=== PATIENT | male | born 1955 | race Caucasian/White ===

== ENCOUNTER 2020-04-08 11:36 | Emergency (ER) | payer BC, OTHER ==
[~2020-04-08] VITALS: Ht 167 cm; Wt 83.9 kg
[2020-04-08] MEDS ORDERED: ASPIRIN 81 MG CHEW (CHILDREN'S ASA) ONE (11:44)
--- NOTE | 2020-04-08 11:55 | ED Cardiac General ---
History of Present Illness General Chief Complaint: Cardiac/General Problems Stated Complaint: HEART ISSUES Source: patient Exam Limitations: no limitations History of Present Illness Date Seen by Provider: Apr 08, 2020 Time Seen by Provider: 11:37 Initial Comments Patient presents ER by private conveyance from [facility] urgent care where he was seen because last night he started having some palpitations and feeling of uneasiness. No chest pain. He says he felt the sensation in his chest go away all he was in the lobby area EKG was obtained showing atrial fibrillation with rapid ventricular response 134. He had a good blood pressure 106/70 and declined an ambulance but came over by POV. Patient has no known history of coronary disease nor sick nor significant Family medical history. He denies chest pain nausea paresthesias. He quit smoking over 20 years ago. He does not have a known history of hyperlipidemia hypertension or diabetes. 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 He says is always been told he has great health. No personal history of atrial fibrillation prior to this. He was tested for COVID 19 2 weeks ago but has not heard the results. He does not have any fever, chills shortness of breath and has not had any symptoms for greater than 10 days. Allergies and Home Medications Allergies Coded Allergies: No Known Drug Allergies (Unverified , 04/08/20) Home Medications Apixaban 5 Mg Tablet, 5 MG PO BID Prescribed by: TRENTON WONG on 04/08/20 1246 Metoprolol Succinate 25 Mg Tab.er.24h, 25 MG PO DAILY Prescribed by: TRENTON WONG on 04/08/20 1246 Patient Home Medication List Home Medication List Reviewed: Yes Review of Systems Review of Systems Constitutional: No chills, No fever EENTM: No Blurred Vision, No Double Vision Respiratory: Denies Cough, Denies Shortness of Air Cardiovascular: See HPI; Denies Chest Pain, Denies Edema; Irregular Heart Rate; Denies Lightheadedness; Palpitations; Denies Syncope Gastrointestinal: Denies Constipated, Denies Diarrhea, Denies Nausea Genitourinary: Denies Burning, Denies Discharge Musculoskeletal: No back pain, No joint pain Skin: No pruritus, No rash Psychiatric/Neurological: Denies Depressed, Denies Headache All Other Systems Reviewed Negative Unless Noted: Yes Past Bzzfbpj-Fpinde-Iulpba Hx Patient Social History Alcohol Use: Denies Use Recreational Drug Use: No Smoking Status: Former Smoker Type Used: Cigarettes Former Smoker, Quit: Mar 16, 1999 Physical Exam Vital Signs Vital Signs - First Documented 04/08/20 11:36 Temp 35.9 Pulse 74 Resp 20 B/P (MAP) 126/94 (105) Pulse Ox 98 Capillary Refill : Height, Weight, BMI Height: '" Weight: lbs. oz. kg; BMI Method: General Appearance: No Apparent Distress, WD/WN HEENT: PERRL/EOMI, Pharynx Normal, Moist Mucous Membranes Neck: Full Range of Motion, Normal Inspection Respiratory: Lungs Clear, Normal Breath Sounds, No Accessory Muscle Use, No Respiratory Distress Cardiovascular: Regular Rate, Rhythm, No Edema, No Murmur, Normal Peripheral Pulses Gastrointestinal: Normal Bowel Sounds, No Organomegaly, Non Tender, Soft Extremity: Normal Capillary Refill, Normal Inspection, No Calf Tenderness, No P edal Edema Neurologic/Psychiatric: Alert, Oriented x3, No Motor/Sensory Deficits, Normal Mood/Affect, health sciences program coordinator II-XII Norm as Tested Skin: Normal Color Progress/Results/Core Measures Results/Orders Lab Results Laboratory Tests Test 04/08/20 11:35 Range/Units White Blood Count 6.1 4.3-11.0 10^3/uL Red Blood Count 5.61 4.35-5.85 10^6/uL Hemoglobin 16.4 13.3-17.7 G/DL Hematocrit 48 40-54 % Mean Corpuscular Volume 86 80-99 FL Mean Corpuscular Hemoglobin 29 25-34 PG Mean Corpuscular Hemoglobin Concent 34 32-36 G/DL Red Cell Distribution Width 13.0 10.0-14.5 % Platelet Count 247 130-400 10^3/uL Mean Platelet Volume 9.9 7.4-10.4 FL Neutrophils (%) (Auto) 60 42-75 % Lymphocytes (%) (Auto) 28 12-44 % Monocytes (%) (Auto) 10 0-12 % Eosinophils (%) (Auto) 2 0-10 % Basophils (%) (Auto) 0 0-10 % Neutrophils # (Auto) 3.7 1.8-7.8 X 10^3 Lymphocytes # (Auto) 1.7 1.0-4.0 X 10^3 Monocytes # (Auto) 0.6 0.0-1.0 X 10^3 Eosinophils # (Auto) 0.1 0.0-0.3 10^3/uL Basophils # (Auto) 0.0 0.0-0.1 10^3/uL Prothrombin Time 12.9 12.2-14.7 SEC INR Comment 0.9 0.8-1.4 Activated Partial Thromboplast Time 27 24-35 SEC Sodium Level 141 135-145 MMOL/L Potassium Level 4.2 3.6-5.0 MMOL/L Chloride Level 106 98-107 MMOL/L Carbon Dioxide Level 26 21-32 MMOL/L Anion Gap 9 5-14 MMOL/L Blood Urea Nitrogen 16 7-18 MG/DL Creatinine 1.08 0.60-1.30 MG/DL Estimat Glomerular Filtration Rate > 60 BUN/Creatinine Ratio 15 Glucose Level 107 H 70-105 MG/DL Calcium Level 9.5 8.5-10.1 MG/DL Corrected Calcium 9.2 8.5-10.1 MG/DL Magnesium Level 2.2 1.6-2.4 MG/DL Total Bilirubin 0.5 0.1-1.0 MG/DL Aspartate Amino Transf (AST/SGOT) 17 5-34 U/L Alanine Aminotransferase (ALT/SGPT) 23 0-55 U/L Alkaline Phosphatase 71 40-136 U/L Myoglobin 52.2 10.0-92.0 NG/ML Troponin I < 0.028 <0.028 NG/ML Total Protein 7.5 6.4-8.2 GM/DL Albumin 4.4 3.2-4.5 GM/DL My Orders Orders - TRENTON WONG Aspirin Chewable Tablet (Baby Aspirin Ch (04/08/20 11:44) Cbc With Automated Diff (04/08/20 11:48) Magnesium (04/08/20 11:48) Chest 1 View, Ap/Pa Only (04/08/20 11:48) Ekg Tracing (04/08/20 11:48) Comprehensive Metabolic Panel (04/08/20 11:48) Myoglobin Serum (04/08/20 11:48) Protime With Inr (04/08/20 11:48) Partial Thromboplastin Time (04/08/20 11:48) O2 (04/08/20 11:48) Monitor-Rhythm Ecg Trace Only (04/08/20 11:48) Lipid Panel (04/09/20 06:00) Ed Iv/Invasive Line Start (04/08/20 11:48) Aspirin Chewable Tablet (Baby Aspirin Ch (04/08/20 12:00) Troponin I (04/08/20 11:35) Medications Given in ED Current Medications Medications Dose Ordered Sig/Eagle Route Start Time Stop Time Status Last Admin Dose Admin Aspirin 324 mg ONCE ONCE PO 04/08/20 12:00 04/08/20 12:01 DC 04/08/20 12:01 324 MG Vital Signs/I&O 04/08/20 11:36 Temp 35.9 Pulse 74 Resp 20 B/P (MAP) 126/94 (105) Pulse Ox 98 Progress Progress Note #1: Time: 11:56 Progress Note Neurologically intact without any chest pain. We will give him some aspirin and check some labs. Since his symptoms have been going on since last night negative troponin would be sufficient. He's had no anginal symptoms. He seems to have spontaneously converted since his EKG was obtained at [facility] urgent care. Plan to have him follow-up outpatient with cardiology, Dr. Cabrera. [id number] score of 0 points. Stroke risk of 0.2% per year and 0.3% risk for stroke/TIA/systemic embolism. This is low risk and may not require anticoagulation. Atria score 0 points putting him at low risk less than 1% per hemorrhage. Reasonable to start anticoagulation. Progress Note #2: Time: 12:52 Progress Note Patient said he was tested 11 days ago and has not had any symptoms since last weekend, for 5 days ago. He had a runny nose and mild sore throat without fevers chills cough or shortness of breath. [facility] do not have a test results from his COVID-19 back yet. He is greater than 10 days from start of symptoms and greater than 72 hours after his last symptoms. 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 Initial ECG Impression Date: Apr 08, 2020 Initial ECG Impression Time: 11:15 Initial ECG Rate: 134 Initial ECG Rhythm: A Fib/Flutter Initial ECG Intervals: QT (364) Initial ECG Impression: Atrial Fibrillation w/RVR Initial ECG Comparisson: No Previous ECG Available Comment Atrial fibrillation with rapid ventricular response. No clinically relevant ST elevation or depression. EKG : EKG Time: 11:39 Rate: 72 Rhythm: Normal Sinus Intervals: Normal ECG Comparisson: Changed ECG Impression: Normal Comment Normal sinus rhythm without clinically relevant ST changes. PVC seen. Diagnostic Imaging Diagonstic Imaging: Xray Plain Films/CT/US/NM/MRI: chest (1v) Comments NAME: MALINA MENDIETA [facility] REC#: [id number] PT STATUS: REG ER : 1955 PHYSICIAN: TRENTON WONG MD ADMIT DATE: 04/08/20/ER Draft Date of Exam:04/08/20 CHEST 1 VIEW, AP/PA ONLY INDICATION: Chest pain. TIME OF EXAM: 12:13 p.m. COMPARISON: No prior studies are available for comparison. FINDINGS: The heart size is normal. The pulmonary vascularity is unremarkable. The lungs are clear. No infiltrate, effusion or pneumothorax is detected. IMPRESSION: No acute cardiopulmonary process is detected. Dictated on workstation # [id number] Dict: 04/08/20 1213 Trans: 04/08/20 1217 [id number] Interpreted by: BRI CHING MD Electronically signed by: Reviewed: Reviewed by Me Consults : Consulting Physician: SANA CABRERA MD [facility] Consults Notes Discussed the case with cardiology Dr. Cabrera recommends Eliquis and Toprol-XL 50 mg daily. Follow up Saturday in his clinic. Departure Impression Primary Impression: Paroxysmal atrial fibrillation with rapid ventricular response Disposition: 01 HOME, SELF-CARE Condition: Stable Departure-Patient Inst. Decision time for Depature: 12:30 Referrals: SANA CABRERA MD [facility] Patient Instructions: Atrial Fibrillation (DC), Going Home on Blood Thinners , Medicines for Atrial Fibrillation Add. Discharge Instructions: Plan to follow up at 1:00 in the afternoon, 04/11/[address] Cabrera at his clinic. Return to the ER promptly if you experience chest pain, shortness of air or other worrisome symptoms. Begin taking Eliquis twice a day as a blood thinner to prevent clots forming in the heart and passing to the brain causing stroke. Begin taking metoprolol XL once a day to help keep your heart rate under control. All discharge instructions reviewed with patient and/or family. Voiced understanding. Scripts Apixaban (Eliquis) 5 Mg Tablet 5 MG PO BID for 10 Days, #20 TAB 0 Refills Prov: TRENTON WONG 04/08/20 Metoprolol Succinate (Metoprolol Succinate) 25 Mg Tab.er.24h 25 MG PO DAILY for 10 Days, #10 TAB 0 Refills Prov: TRENTON WONG 04/08/20 Work/School Note: Work Release Form Date Seen in the Emergency Department: Apr 08, 2020 Return to Work: Apr 12, 2020 Restrictions: No Restrictions Copy Copies To 1: SANA CABRERA MD FACP FACC CCDS TRENTON WONG Apr 08, 2020 11:55
[2020-04-08] MEDS ORDERED: ASPIRIN 81 MG CHEW (CHILDREN'S ASA) PO ONE (12:00)
[2020-04-08 12:09] LABS: BASOPHILS % (AUTO) 0 % (0-10); EOSINOPHILS # (AUTO) 0.1 10^3/uL (0.0-0.3); EOSINOPHILS % (AUTO) 2 % (0-10); HEMATOCRIT 48 % (40-54); HEMOGLOBIN 16.4 G/DL (13.3-17.7); LYMPHOCYTES # (AUTO) 1.7 X 10^3 (1.0-4.0); LYMPHOCYTES % (AUTO) 28 % (12-44); MEAN CORPUSCULAR HEMOGLOBIN 29 PG (25-34); MEAN CORPUSCULAR HGB CONC 34 G/DL (32-36); MEAN CORPUSCULAR VOLUME 86 FL (80-99); MEAN PLATELET VOLUME 9.9 FL (7.4-10.4); MONOCYTES # (AUTO) 0.6 X 10^3 (0.0-1.0); MONOCYTES % (AUTO) 10 % (0-12); NEUTROPHILS # (AUTO) 3.7 X 10^3 (1.8-7.8); NEUTROPHILS % (AUTO) 60 % (42-75); PLATELET COUNT 247 10^3/uL (130-400); WHITE BLOOD COUNT 6.1 10^3/uL (4.3-11.0)
[2020-04-08 12:12] LABS: ALBUMIN 4.4 GM/DL (3.2-4.5)
[2020-04-08 12:13] LABS: CHLORIDE 106 MMOL/L (98-107); POTASSIUM 4.2 MMOL/L (3.6-5.0); SODIUM 141 MMOL/L (135-145)
[2020-04-08 12:14] LABS: CALCIUM 9.5 MG/DL (8.5-10.1); INR 0.9 (0.8-1.4); PROTHROMBIN TIME PATIENT 12.9 SEC (12.2-14.7)
[2020-04-08 12:15] LABS: GLUCOSE 107 MG/DL (70-105); TOTAL PROTEIN 7.5 GM/DL (6.4-8.2)
[2020-04-08 12:16] LABS: CARBON DIOXIDE 26 MMOL/L (21-32)
[2020-04-08 12:17] LABS: BILIRUBIN,TOTAL 0.5 MG/DL (0.1-1.0)
--- NOTE | 2020-04-08 12:18 | Diagnostic Imaging Report ---
INDICATION: Chest pain. TIME OF EXAM: 12:13 p.m. COMPARISON: No prior studies are available for comparison. FINDINGS: The heart size is normal. The pulmonary vascularity is unremarkable. The lungs are clear. No infiltrate, effusion or pneumothorax is detected. IMPRESSION: No acute cardiopulmonary process is detected. Dictated by: Dictated on workstation # [id number]
[2020-04-08 12:19] LABS: ALKALINE PHOSPHATASE 71 U/L (40-136); CREATININE SERUM 1.08 MG/DL (0.60-1.30); GFR ESTIMATED > 60
[2020-04-08 12:20] LABS: BUN/CREATININE RATIO 15
[2020-04-08 12:22] LABS: ALANINE AMINOTRANSFERASE 23 U/L (0-55); MAGNESIUM 2.2 MG/DL (1.6-2.4)
--- OUTSIDE RECORDS SUMMARY | 2020-04-08 12:34 | XMS REPORT ---
Author Author Vinnie DESAI Organization [employer] Address Unknown Phone Unavailable Care Team Providers Care Mds Coordinator Name Role Phone GEMINI DESAI CP Unavailable Allergies, Adverse Reactions, Alerts Substance Reaction Event Type N.K.D.A. Info Not Available Non Drug Allergy Problems Problem Type Condition Code Onset Dates Condition Statu s Assessment Allergic rhinitis J30.9 Active Medications No Known Medications Procedures Procedure Coding System Code Date Office Visit, New Pt., Level 3 CPT-4 28515 J an 2015 Vital Signs Date/Time: Sep 19, 2015 Temperature 98.7 F Weight 190 lbs Height 66 in BMI 30.66 Index Blood Pressure Diastolic 84 mmHg Blood Pressure Systolic 110 mmHg Cardiac Monitoring Heart Rate 64 bpm Results No Known Results Summary Purpose [employer] Submission
--- OUTSIDE RECORDS SUMMARY | 2020-04-08 12:34 | XMS REPORT | Continuity of Care Document ---
Author Organization Unknown Address Unknown Phone Unavailable Allergies There is no data. Medications There is no data. Problems There is no data. Procedures There is no data. Results There is no data. Encounters ACCT No. Visit Date/Time Discharge Status Pt. Type Provider Facility Loc./Unit Complaint [id number] 03/28/2020 10:10:00 03/28/2020 23:59: 59 CLS Outpatient [facility]
[2020-04-08] MEDS ORDERED: APIX5TAB PO (12:46)
[2020-04-08] MEDS ORDERED: MTP25TSR PO (12:46)
[2020-04-08 12:50] VITALS: BP 113/77
== END 2020-04-08 12:50 | disposition home or self-care (01) ==
LOC: EDUNIT# 11:36 → ER 11:37
DX: I48.0 Paroxysmal atrial fibrillation (principal); Z79.01 Long term (current) use of anticoagulants; Z87.891 Personal history of nicotine dependence
CPT/HCPCS: 71045; 80053; 83735; 83874; 84484; 85025; 85610; 85730; 93005; 93041

== ENCOUNTER → 2020-04-14 | Outpatient (CLI) | payer BC ==
[~2020-04-14] MED LIST: APIX5TAB PO; MTP25TSR PO
== END ==
LOC: CARD 11:00
PROVIDERS: ATTEND Internal Medicine Cardiovascular Disease
DX: I48.0 Paroxysmal atrial fibrillation (principal); R00.2 Palpitations
CPT/HCPCS: 93306

== ENCOUNTER → 2020-05-03 | Outpatient (CLI) | payer BC ==
[~2020-05-03] VITALS: Ht 167 cm; Wt 80.0 kg
[~2020-05-03] MED LIST changes: +CATHETER FLUSH 10 ML SYR IV PRN; +REGADENOSON 0.4 MG/5 ML SYR (LEXISCAN) IV ONE
[2020-05-03 09:11] VITALS: BP 133/80
--- NOTE | 2020-05-03 11:59 | STRESS TEST ---
DATE OF SERVICE: 05/03/2020 RESTING AND POST REGADENOSON TECHNETIUM-99M TETROFOSMIN SPECT CT IMAGING. CLINICAL DIAGNOSES: Palpitations and paroxysmal atrial fibrillation. ORDERING PHYSICIAN: Dr. Cabrera. Baseline images were carried out after injection of 10.17 mCi of technetium-99m Tetrofosmin. This was followed by 0.4 mg Regadenoson and 29.9 mCi of technetium-99m Tetrofosmin for stress imaging. The electrocardiogram showed sinus rhythm with subtle nonspecific ST abnormality at baseline. This did not change significantly with the Regadenoson infusion. The patient noted mild shortness of breath and chest tightness following Regadenoson infusion, which resolved in a few minutes. Review of images at rest and following stress does not indicate any distinct perfusion defect consistent with significant myocardial ischemia or infarction. Gated images show global left ventricular systolic function to be at the lower limit of normal. Left ventricular ejection fraction is calculated to be 43%, but appears to be somewhat higher subjectively. Left ventricular end diastolic volume is 108 mL. TID is absent (1). CONCLUSIONS: 1. No evidence of significant myocardial ischemia or infarction on this study. 2. Mild to moderate cardiomegaly. 3. Global left ventricular systolic function appears to be at the lower limit of normal. Ejection fraction is calculated to be 43%, but appears to be somewhat higher subjectively. Job ID: [id number] DocumentID: [id number] Dictated Date: 05/03/2020 11:08:54 Try On Baster Date: 05/03/2020 11:57:59 Dictated By: SANA CABRERA MD, MA, FACP, FACC,
== END ==
LOC: CARD 07:10
PROVIDERS: ATTEND Internal Medicine Cardiovascular Disease
DX: I48.0 Paroxysmal atrial fibrillation (principal); I51.7 Cardiomegaly
CPT/HCPCS: 78452; 93017; A9502

== ENCOUNTER → 2020-09-20 | Outpatient (CLI) | payer BC ==
[~2020-09-20] MED LIST changes: +HOLD METFORMIN - RECEIVED CONTRAST 20 ML VIAL IV SCH; +IOHEXOL 350 MG/ML 100 ML (OMNIPAQUE 350) VIAL IV ONE; +NS 100 ML (IVPB) BAG IV ONE; -REGADENOSON 0.4 MG/5 ML SYR (LEXISCAN) IV ONE
[2020-09-20 09:09] LABS: BUN/CREATININE RATIO 20; GFR ESTIMATED > 60
--- NOTE | 2020-09-20 09:58 | Diagnostic Imaging Report ---
PROCEDURE: CT angiography of the chest with contrast. TECHNIQUE: Multiple contiguous axial images were obtained through the chest after uneventful bolus administration of intravenous contrast. 3D reconstructed CTA MIP acquisitions were also performed. Auto Exposure Controls were utilized during the CT exam to meet ALARA standards for radiation dose reduction. INDICATION: Chest discomfort. Evaluation of pulmonary arterial system is without evidence of thromboembolism. No filling defects are seen within central, lobar segmental branches. No pericardial or pleural fluid is identified. No pulmonary infiltrates, noncalcified nodules or masses are seen. Upper abdomen is unremarkable. IMPRESSION: Essentially unremarkable CT angiogram of the chest. No acute feature is detected. Dictated by: Dictated on workstation # [id number]
== END ==
LOC: RAD 09:15
PROVIDERS: ATTEND Nurse Practitioner Family
DX: Z03.89 Encounter for observation for other suspected diseases and conditions ruled out (principal)
CPT/HCPCS: 36415; 71275; 82565; 84520

== ENCOUNTER → 2020-10-18 | Outpatient (CLI) | payer BC ==
[~2020-10-18] MED LIST changes: -CATHETER FLUSH 10 ML SYR IV PRN; -HOLD METFORMIN - RECEIVED CONTRAST 20 ML VIAL IV SCH; -IOHEXOL 350 MG/ML 100 ML (OMNIPAQUE 350) VIAL IV ONE; -NS 100 ML (IVPB) BAG IV ONE; +RT-ALBUTEROL SULF 2.5 MG/3 ML PRE-MIX VIAL INH ONE
== END ==
LOC: RT 08:00
PROVIDERS: ATTEND Nurse Practitioner Family
DX: G47.10 Hypersomnia, unspecified (principal)
CPT/HCPCS: 94060; 94726; 94729